=== PATIENT | male | born 1975 | race Caucasian/White ===

== ENCOUNTER 2017-05-04 09:05 | Emergency (ER) | payer MEDICAID, MEDICARE, OTHER ==
[~2017-05-04] VITALS: Ht 170.2 cm; Wt 71.8 kg
[~2017-05-04 09:05] MED LIST: BENZ1TAB10 PO; HALO10 PO; NICO14T TD; RISP3 PO; TRAZ-144 PO
[2017-05-04 10:43] VITALS: BP 122/80
== END 2017-05-04 12:04 | disposition home or self-care (01) ==
LOC: EMS 09:09
DX: S43.102A Unspecified dislocation of left acromioclavicular joint, initial encounter (principal); F17.210 Nicotine dependence, cigarettes, uncomplicated; W10.9XXA Fall (on) (from) unspecified stairs and steps, initial encounter; Y93.51 Activity, roller skating (inline) and skateboarding; Y92.89 Other specified places as the place of occurrence of the external cause; Y99.8 Other external cause status
CPT/HCPCS: 29105; 99284

== ENCOUNTER 2018-06-16 03:16 | Emergency (ER) | payer SELFPAY ==
[~2018-06-16] VITALS: Ht 170.2 cm; Wt 68.2 kg
[~2018-06-16 03:16] MED LIST changes: -TRAZ-144 PO; +TRAZ-219 PO
[2018-06-16 03:27] VITALS: BP 131/89
== END 2018-06-16 03:50 | disposition home or self-care (01) ==
LOC: EMS 03:17
DX: S00.81XA Abrasion of other part of head, initial encounter (principal); F31.9 Bipolar disorder, unspecified; F20.9 Schizophrenia, unspecified; F17.210 Nicotine dependence, cigarettes, uncomplicated; Y35.813A Legal intervention involving manhandling, suspect injured, initial encounter; Y93.89 Activity, other specified; Y92.89 Other specified places as the place of occurrence of the external cause; Y99.8 Other external cause status